=== PATIENT | male | born 1950 | race Caucasian/White ===

== ENCOUNTER 2021-01-12 05:23 | Day surgery (SDC) | payer MEDICARE ==
[~2021-01-12] VITALS: Ht 175.3 cm; Wt 85.3 kg
[2021-01-12] MEDS ORDERED: ATOR40TA78 PO (06:01)
[2021-01-12] MEDS ORDERED: INSU100C5 SQ-INSULIN (06:01)
[2021-01-12] MEDS ORDERED: FURO80TA3 PO (06:01)
[2021-01-12] MEDS ORDERED: LISI40TA9 PO (06:01)
[2021-01-12] MEDS ORDERED: SODI650T PO (06:01)
[2021-01-12] MEDS ORDERED: AMLO-211 PO (06:01)
[2021-01-12] MEDS ORDERED: CHLORHEXIDINE 15 ML UDC PO ONE (06:30)
[2021-01-12] MEDS ORDERED: SODIUM CHLORIDE 0.9% 1,000 ML IV SCH (06:30)
[2021-01-12] MEDS ORDERED: BUPIVACAINE/PF 0.5% ONE (07:01)
[2021-01-12] MEDS ORDERED: EPINEPHRINE 1 MG/ML, 1ML ONE (07:01)
[2021-01-12 07:04] VITALS: BP 183/82
[2021-01-12 07:05] LABS: BASOPHILS % (AUTO) 1 % (0-1); EOSINOPHILS % (AUTO) 10 % (1-7); LYMPHOCYTES % (AUTO) 26 % (22-44); MEAN CORPUSCULAR HEMOGLOBIN 27.4 pg (27.5-34.5); MEAN CORPUSCULAR HGB CONC 32.2 g/dL (33.2-36.2); MEAN PLATELET VOLUME 9.3 fL (7.4-10.4); MONOCYTES % (AUTO) 6 % (2-9); NEUTROPHILS % (AUTO) 57 % (42-75); PLATELET COUNT 160 x10^3/uL (130-400); RED BLOOD COUNT 4.25 x10^6/uL (4.38-5.82); RED CELL DISTRIBUTION WIDTH 15.3 % (9.4-14.8)
[2021-01-12 07:13] LABS: ALBUMIN 3.3 g/dL (3.4-5.0); ANION GAP 9 mmol/L (5-15); CHLORIDE 104 mmol/L (98-107)
[2021-01-12 07:18] LABS: ALANINE AMINOTRANSFERASE 47 U/L (12-78); ALKALINE PHOSPHATASE 152 U/L (45-117); BILIRUBIN,TOTAL 0.9 mg/dL (0.2-1.0); CREATININE 6.13 mg/dL (0.7-1.3); TOTAL PROTEIN 8.5 g/dL (6.4-8.2)
[2021-01-12] MEDS ORDERED: FENTANYL PF 250 MCG/5ML ONE (07:23)
[2021-01-12] MEDS ORDERED: PROPOFOL 50 ML ONE (07:23)
[2021-01-12] MEDS ORDERED: ROCURONIUM 10MG/ML,5ML ONE (07:27)
[2021-01-12 07:52] LABS: INTERNATIONAL NORMALIZED RATIO 0.98 (0.93-1.1); PROTHROMBIN TIME 10.5 Seconds (9.6-11.5)
== END 2021-01-12 07:50 | disposition home or self-care (01) ==
LOC: OUT 05:23
PROVIDERS: ATTEND Surgery
DX: E11.22 Type 2 diabetes mellitus with diabetic chronic kidney disease (principal); I12.0 Hypertensive chronic kidney disease with stage 5 chronic kidney disease or end stage renal disease; N18.6 End stage renal disease; Z53.8 Procedure and treatment not carried out for other reasons; E87.5 Hyperkalemia; E78.5 Hyperlipidemia, unspecified; F17.210 Nicotine dependence, cigarettes, uncomplicated; Z79.4 Long term (current) use of insulin; Z79.899 Other long term (current) drug therapy; Z20.822 Contact with and (suspected) exposure to COVID-19; Z99.2 Dependence on renal dialysis; Z83.3 Family history of diabetes mellitus
CPT/HCPCS: 36415; 71045; 80053; 82962; 85025; 85610; 87635; 93005; J0171; J2704; J7030; J3010